=== PATIENT | male | born 1940 | race Caucasian/White ===

== ENCOUNTER 2018-11-21 10:58 | Emergency (ER) | payer OTHER ==
--- OUTSIDE RECORDS SUMMARY | 2018-11-21 11:02 | XMS REPORT | Continuity of Care Document ---
:1940 Author Organization [facility] Team Providers Name Role Phone [facility] Unavailable Unavailable Problems Problem Status Onset Classification Date Comments Source Date Reported Other fracture of 09/11/2018 Ortho T11-T12 vertebra, 018 and Spine initial encounter for closed fracture STENOSIS Active [facility] 018 Samuel Prostate cancer Resolved Problem 09/11/2018 [facility]o 011 and Spine Spinal stenosis, 09/11/2018 [facility] Ortho lumbar region without and Spine neurogenic claudication Radiculopathy, lumbar 09/11/2018 [facility] Ortho region and Spine Age-related 09/11/2018 Ortho osteoporosis without and Spine current pathological fracture Essential 09/11/2018 Ortho hypertension and Spine Pure 09/11/2018 MH Ortho hypercholesterolemia, and Spine unspecified Personal history of 09/11/2018 Ortho malignant neoplasm of and Spine prostate [facility] use of 09/11/2018 [facility] Ortho aspirin and Spine Other nursing home drug 09/11/2018 [facility] Ortho therapy and Spine Constipation Active Problem 09/11/2018 [facility] Ortho and Spine [place] (Confirmed)1 Active Problem 09/11/2018 wears Ortho hearing and Spine aids Hypercholesteremia Active Problem 09/11/2018 [facility] and Spine Hypertension Active Problem 09/11/2018 [facility] and Spine Medications Medication Details Route Status Patient Ordering Order Source Instructions Provider Date Naloxone 0.4 mg, 1 mL, Inactive Route: IVP, Drug 2017 Ortho form: INJ, and Q2MIN, Dosing Spine Weight 107.182, kg, PRN Narcotic Reversal, Start date: 02/22/18 13:02:00 CDT, Duration: 8 doses or times, Stop date: Limited # of timesNotes: Same as Narcan Ondansetron 4 mg, 2 mL, Inactive Route: IVP, Drug 2017 Ortho form: INJ, ONCE, and Dosing Weight Spine 107.182, kg, PRN Nausea & Vomiting, Start date: 02/22/18 13:02:00 CDTNotes: (Same as: Zofran) MEDICATION WASTE Product Size: 4 mg Product Wasted: ___ mg Oxycodone 5 mg, 1 tab, Inactive Route: PO, Drug 2017 Ortho form: TAB, Q4H, and Dosing Weight Spine 107.182, kg, PRN Pain Score 4-6, Start date: 02/22/18 13:02:00 CDT, Duration: 30 day, Stop date: 03/24/18 13:01:00 CSTNotes: (Same as: Roxicodone) Flumazenil 0.2 mg, 2 mL, Inactive Route: IVP, Drug 2017 Ortho form: INJ, PRN, and Dosing Weight Spine 107.182, kg, PRN Benzodiazepine Reversal, Initial dose, Start date: 02/22/18 13:02:00 CDT, Duration: 30 day, Stop date: 03/24/18 12:01:00 CSTNotes: (Same as: Romazicon) Hydromorphone 0.5 mg, 0.25 mL, Inactive Route: IVP, Drug 2017 Ortho form: INJ, and Q5Min, Dosing Spine Weight 107.182, kg, PRN Pain Score 7-10, Start date: 02/22/18 13:02:00 CDT, Duration: 4 doses or times, Stop date: Limited # of timesNotes: Same as Dilaudid ondansetron Route: IV, Drug Inactive MH (ANES) form: INJ, ONCE, 2017 Ortho Stop date: and 02/22/18 Spine 12:52:00 CDT acetaminophen Route: IV, Drug Inactive MH (ANES) 10 mg form: INJ, Start 2017 Ortho date: 02/22/18 and 12:25:00 CDT, Spine Stop date: 02/22/18 13:25:00 CDT hydromorphone Route: IV, Drug Inactive MH (ANES) form: INJ, ONCE, 2017 Ortho Stop date: and 02/22/18 Spine 12:12:00 CDT dexamethasone Route: IV, Drug Inactive MH (ANES) form: INJ, ONCE, 2017 Ortho Stop date: and 02/22/18 Spine 11:57:00 CDT midazolam (ANES) Route: IV, Drug Inactive form: SOLN, 2017 Ortho ONCE, Stop date: and 02/22/18 Spine 11:57:00 CDT ceFAZolin (ANES) Route: IV, Drug Inactive form: INJ, ONCE, 2017 Ortho Stop date: and 02/22/18 Spine 11:52:00 CDT succinylcholine Route: IV, Drug Inactive MH (ANES) form: INJ, ONCE, 2017 Ortho Stop date: and 02/22/18 Spine 11:42:00 CDT propofol (ANES) Route: IV, Drug Inactive form: INJ, ONCE, 2017 Ortho Stop date: and 02/22/18 Spine 11:37:00 CDT lidocaine (ANES) Route: IV, Drug Inactive form: INJ, ONCE, 2017 Ortho Stop date: and 02/22/18 Spine 11:37:00 CDT fentaNYL (ANES) Route: IV, Drug Inactive form: INJ, ONCE, 2017 Ortho Stop date: and 02/22/18 Spine 11:37:00 CDT Lactated Ringers Route: IV, Total Inactive Injection IV Volume: 1,000, 2017 Ortho (ANES) 1000 mL Start date: and 02/22/18 Spine 11:00:00 CDT, Stop date: 02/22/18 12:00:00 CDT Lactated Ringers 1,000 mL, Rate: No Longer IV 1,000 mL 40 ml/hr, Infuse Active 2017 Ortho over: 25 hr, and Route: IV, Spine Dosing Weight 107.182 kg, Total Volume: 1,000, Start date: 02/22/18 9:34:00 CDT, Duration: 30 day, Stop date: 03/24/18 9:33:00 QA AUTOMATION ARCHITECT, 2.39, m2 Ancef 2 gm, 100 mL, Inactive Route: IVPB, 2017 Ortho Drug form: INJ, and ONCE, Dosing Spine Weight 107.182, kg, Start date: 02/22/18 9:33:00 CDT, Stop date: 02/22/18 9:33:00 CDT, Surgical Prophylaxis Only; For patients Notes: Same as: Ancef Miralax 17 gm, PO, Active 10/10/ MH Daily, 0 2018 Ortho Refill(s) and Spine Acetaminophen 325 1 tab, PO, PRN, Active 10/10/ MH MG / Hydrocodone PRN Pain, # 30 2018 Ortho Bitartrate 10 MG tab, 0 Refill(s) and Oral Tablet Spine Diphenhydramine 25 mg=1 tab, PO, Active 10/10/ MH Hydrochloride 25 PRN, 0 Refill(s) 2018 Ortho MG Oral Tablet and [Benadryl] Spine ezetimibe 10 mg 10 mg=1 tab, PO, Active 10/10/ MH oral tablet Daily, # 90 tab, 2018 Ortho 0 Refill(s) and Spine Aspirin 81 MG 81 mg=1 tab, PO, Active 10/10/ MH Enteric Coated Daily, # 90 tab, 2018 Ortho Tablet 3 Refill(s) and Spine amLODIPine 10 mg 10 mg=1 tab, PO, Active 10/10/ MH oral tablet Daily, take DOS, 2018 Ortho # 90 tab, 0 and Refill(s) Spine atorvastatin 80 80 mg=1 tab, PO, Active 10/10/ MH mg oral tablet Bedtime, # 30 2018 Ortho tab, 0 Refill(s) and Spine Allergies, Adverse Reactions, Alerts Substance Category Reaction Severity Reaction Status Date Comments Source type Reported No Known Assertion Drug MH Medication allergy Ortho Allergies and Spine Immunizations No Data Provided for This Section Results Order Name Results Value Reference Date Interpretation Comments Source Range BLOOD BANK ABO/Rh A POS 02/16 RESULTS /2017 Ortho and Spine BLOOD BANK Antibody Scrn Negative 02/16 RESULTS (02/16/18 1:48 PM) Ortho and Spine CHEM PANEL A/G Ratio 1.0 0.7 - 1.6 02/16 Ortho and Spine CHEM PANEL Globulin 3.5 2.7 - 4.2 02/16 Ortho and Spine CHEM PANEL B/C Ratio 22 6 - 25 02/16 Ortho and Spine CHEM PANEL AGAP 11.6 10.0 - 02/16 MH 20.0 Ortho and Spine CHEM PANEL eGFR 86 02/16 Result Comment: The Ortho eGFR is and calculated Spine using the CKD-EPI formula. In most young, healthy individuals the eGFR will be >90 mL/min/1.73m2 . The eGFR declines with age. An eGFR of 60-89 may be normal in some populations, particularly the elderly, for whom the CKD-EPI formula has not been extensively validated. Use of the eGFR is not recommended in the following populations:< br/>
Saritha viduals with unstable creatinine concentration s, including patients and those with serious co-morbid conditions.<b r/>
Patie nts with extremes in muscle mass or diet.

The data above are obtained from the National Kidney Disease Education Program (NKDEP) which additionally recommends that when the eGFR is used in patients with extremes of body mass index for purposes of drug dosing, the eGFR should be multiplied by the estimated BMI. CHEM PANEL Alk Phos 87 39 - 136 02/16 Ortho and Spine CHEM PANEL Glucose Lvl 94 70 - 99 02/16 Ortho and Spine CHEM PANEL Creatinine Lvl 0.82 0.50 - 02/16 MH 1.40 Ortho and Spine CHEM PANEL BUN 18 7 - 22 02/16 Ortho and Spine CHEM PANEL Total Protein 7.0 6.4 - 8.4 02/16 Ortho and Spine CHEM PANEL CO2 29 24 - 32 02/16 Ortho and Spine CHEM PANEL Sodium Lvl 141 135 - 145 02/16 Ortho and Spine CHEM PANEL Calcium Lvl 9.7 8.5 - 10.5 02/16 Ortho and Spine CHEM PANEL Chloride Lvl 105 95 - 109 02/16 Ortho and Spine CHEM PANEL Potassium Lvl 4.6 3.5 - 5.1 02/16 Ortho and Spine CHEM PANEL Bili Total 1.2 0.2 - 1.3 02/16 Ortho and Spine CHEM PANEL Albumin Lvl 3.5 3.5 - 5.0 02/16 Ortho and Spine CHEM PANEL ASPARTATE 21 0 - 37 02/16 TRANSAMINASE Ortho and Spine CHEM PANEL ALANINE 29 0 - 65 02/16 AMINOTRANSFERAS Ortho E and Spine HEMATOLOGY INR 0.97 0.85 - 02/16 MH 1.17 Ortho and Spine HEMATOLOGY PROTIME 12.9 12.0 - 02/16 MH 14.7 Ortho and Spine HEMATOLOGY aPTT 32.7 22.9 - 02/16 MH 35.8 Ortho and Spine HEMATOLOGY Lymphocytes # 1.7 1.0 - 5.5 02/16 Ortho and Spine HEMATOLOGY Neutrophils # 4.1 1.5 - 8.1 02/16 Ortho and Spine HEMATOLOGY Monocytes # 0.7 0.0 - 0.8 02/16 Ortho and Spine HEMATOLOGY Basophils # 0.1 0.0 - 0.2 02/16 Ortho and Spine HEMATOLOGY Eosinophils # 0.2 0.0 - 0.5 02/16 Ortho and Spine HEMATOLOGY Lymphocytes 25.5 20.0 - 10 MH 40.0 /2017 Ortho and Spine HEMATOLOGY Segs 60.6 45.0 - 02/16 MH 75.0 /2018 Ortho and Spine HEMATOLOGY Eosinophils 2.4 0.0 - 4.0 02/16 Ortho and Spine HEMATOLOGY Monocytes 10.5 2.0 - 12.0 02/16 Ortho and Spine HEMATOLOGY Basophils 1.0 0.0 - 1.0 02/16 Ortho and Spine HEMATOLOGY Hgb 13.2 14.0 - 02/16 MH 18.0 Ortho and Spine HEMATOLOGY Hct 40.7 42.0 - 02/16 MH 54.0 Ortho and Spine HEMATOLOGY MCV 93.7 80.0 - 02/16 MH 94.0 /2017 Ortho and Spine HEMATOLOGY MCH 30.5 27.0 - 02/16 MH 31.0 Ortho and Spine HEMATOLOGY RBC 4.34 4.70 - 02/16 MH 6. Ortho and Spine HEMATOLOGY Platelet 253 133 - 450 02/16 Ortho and Spine HEMATOLOGY MPV 9.8 7.4 - 10.4 02/16 Ortho and Spine HEMATOLOGY RDW 13.6 11.5 - 02/16 MH 14. Ortho and Spine HEMATOLOGY MCHC 32.6 32.0 - 02/16 MH 36.0 2018 Ortho and Spine HEMATOLOGY WBC 6.8 3.7 - 10.4 02/16 Ortho and Spine Pathology Reports No Data Provided for This Section Diagnostic Reports No Data Provided for This Section Consultation Notes No Data Provided for This Section Discharge Summaries No Data Provided for This Section History and Physicals No Data Provided for This Section Vital Signs Vital Sign Value Date Comments Source Respitory Rate 14 02/22/2018 Ortho and Spine Heart Rate 76 02/22/2018 Ortho and Spine Systolic (mm Hg) 130 02/22/2018 Ortho and Spine Diastolic (mm Hg) 77 02/22/2018 Ortho and Spine Systolic (mm Hg) 126 02/22/2018 Ortho and Spine Diastolic (mm Hg) 70 02/22/2018 Ortho and Spine Respitory Rate 12 02/22/2018 Ortho and Spine Heart Rate 79 02/22/2018 Ortho and Spine Systolic (mm Hg) 122 02/22/2018 Ortho and Spine Diastolic (mm Hg) 64 02/22/2018 Ortho and Spine Respitory Rate 12 02/22/2018 Ortho and Spine Heart Rate 89 02/22/2018 Ortho and Spine Temperature Oral (F) 97.5 F 02/22/2018 Ortho and Spine BMI Calculated 29.53 02/22/2018 Ortho and Spine Weight 107.182 02/22/2018 Ortho and Spine Temperature Oral (F) 97.5 F 02/16/2018 Ortho and Spine Height 190.5 cm 02/14/2018 Ortho and Spine Encounters Location Location Encounter Encounter Reason Attending ADM DC Status Source Details Type Number For Provider Date Date Visit [id number] Tim 02/22 02/23 [facility] /2017 [facility] Procedures Procedure Code Date Perfomer Comments Source Total hip [id number] 12/06/2017 Ortho and replacement Spine Total knee [id number] 05/08/2015 Ortho and replacement Spine Hernia repair [id number] 05/08/2013 Ortho and Spine Prostatectomy [id number] 05/08/2010 Ortho and Spine Rotator cuff repair [id number] 05/08/2010 Ortho and Spine Varicose vein [id number] Ortho and operation Spine Assessment and Plan No Data Provided for This Section Plan of Care No Data Provided for This Section Social History Social History Date Source Social History TypeResponse 02/14/2018 Ortho and Spine Substance Abuse Use: None. Exercise 1 Alcohol Current, Frequency: Daily. Previous treatment: None. Smoking Status Never smoker; Exposure to Tobacco Smoke None; Cigarette Smoking Last 365 Days No; Reg Smoking Cessation Counseling No entered on: 02/22/18 1is very active. Denies SOB with exertion Family History No Data Provided for This Section Advance Directives No Data Provided for This Section Functional Status No Data Provided for This Section
--- OUTSIDE RECORDS SUMMARY | 2018-11-21 11:02 | XMS REPORT | Summary of Care ---
:1940 Author Organization [facility] Address [address] [place] [phone] Encounter HQ Marcus(FIN) [id number] Date(s): 02/22/18 - 02/22/18 [facility] [address] [place] [address]- [phone] Encounter Diagnosis Other fracture of T11-T12 vertebra, initial encounter for closed fracture (Final ) - 03/01/18 Spinal stenosis, lumbar region without neurogenic claudication (Final) - Radiculopathy, lumbar region (Final) - Age-related osteoporosis without current pathological fracture (Final) - Essential (primary) hypertension (Final) - Pure hypercholesterolemia, unspecified (Final) - Personal history of malignant neoplasm of prostate (Final) - intermediate manager (current) use of aspirin (Final) - Other mcc (current) drug therapy (Final) - Discharge Disposition: Home or Self Care Attending Physician: Tim Watts MD Referring Physician: Tim Watts MD Vital Signs Most recent to oldest 1 2 3 [Reference Range]: Height 190.5 cm (02/14/18 12:45 PM) Temperature Oral [96.4-99.1 97.5 DegF 97.5 DegF DegF] (02/22/18 9:11 AM) (02/16/18 1:37 PM) Blood Pressure 130/77 mmHg 126/70 mmHg 122/64 mmHg [90-140/60-90 mmHg] (02/22/18 2:01 PM) (02/22/18 1:47 PM) (02/22/18 1:25 PM) Respiratory Rate [14-20 14 BRMIN 12 BRMIN 12 BRMIN BRMIN] (02/22/18 2:01 PM) *LOW* *LOW* (02/22/18 1:47 PM) (02/22/18 1:25 PM) Peripheral Pulse Rate 76 bpm 79 bpm 89 bpm [60-100 bpm] (02/22/18 2:01 PM) (02/22/18 1:47 PM) (02/22/18 9:11 AM) Weight 107.182 kg (02/22/18 9:10 AM) Body Mass Index 29.53 m2 (02/22/18 9:10 AM) Problem List Condition Effective Dates Status Health Status Informant Constipation(Confirmed) Active [facility] (hard of hearing)(Confirmed)1 Active Hypercholesteremia(Confirmed) Active Hypertension(Confirmed) Active Prostate cancer(Confirmed) 2011 Resolved 1wears hearing aids Allergies, Adverse Reactions, Alerts No Known Medication Allergies Medications acetaminophen (ANES) 10 mg Route: IV, Drug form: INJ, Start date: 02/22/18 12:25:00 CDT, Stop date: 13:25:00 CDT Start Date: 02/22/18 Stop Date: 02/22/18 Status: Completedacetaminophen-hydrocodone 325 mg-10 mg oral tablet 1 tab, PO, PRN, PRN Pain, # 30 tab, 0 Refill(s) Start Date: 02/14/18 Status: OrderedamLODIPine 10 mg oral tablet 10 mg=1 tab, PO, Daily, take DOS, # 90 tab, 0 Refill(s) Start Date: 02/14/18 Status: OrderedAncef 2 gm, 100 mL, Route: IVPB, Drug form: INJ, ONCE, Dosing Weight 107.182, kg, Start date: 02/22/18 9:33:00 CDT, Stop date: 02/22/18 9:33:00 CDT, Surgical Prophylaxis Only; For patients < 120 kg, ABX Indication: Surgical Prophylaxis Notes: Same as: Ancef Start Date: 02/22/18 Stop Date: 02/22/18 Status: CompletedANES flumazenil 0.2 mg, 2 mL, Route: IVP, Drug form: INJ, PRN, Dosing Weight 107.182, kg, PRN Benzodiazepine Reversal, Initial dose, Start date: 02/22/18 13:02:00 CDT, Duration: 30 day, Stop date: 03/24/18 12:01:00 [employer] AND [employer]ANDAR[employer] ENGINEER Notes: (Same as: Romazicon) Start Date: 02/22/18 Stop Date: 02/22/18 Status: DiscontinuedANES HYDROmorphone 0.5 mg, 0.25 mL, Route: IVP, Drug form: INJ, Q5Min, Dosing Weight 107.182, kg, PRN Pain Score 7-10, Start date: 02/22/18 13:02:00 CDT, Duration: 4 doses or times, Stop date: Limited # of times Notes: Same as Dilaudid Start Date: 02/22/18 Stop Date: 02/22/18 Status: DiscontinuedANES naloxone 0.4 mg, 1 mL, Route: IVP, Drug form: INJ, Q2MIN, Dosing Weight 107.182, kg, PRN Narcotic Reversal, Start date: 02/22/18 13:02:00 CDT, Duration: 8 doses or times , Stop date: Limited # of times Notes: Same as Narcan Start Date: 02/22/18 Stop Date: 02/22/18 Status: DiscontinuedANES ondansetron 4 mg, 2 mL, Route: IVP, Drug form: INJ, ONCE, Dosing Weight 107.182, kg, PRN Nausea & Vomiting, Start date: 02/22/18 13:02:00 CDT Notes: (Same as: Naga) MEDICATION WASTE Product Size: 4 mgProduct Wasted: ___ mg Start Date: 02/22/18 Stop Date: 02/22/18 Status: DiscontinuedANES oxyCODONE 5 mg, 1 tab, Route: PO, Drug form: TAB, Q4H, Dosing Weight 107.182, kg, PRN Pain Score 4-6, Start date: 02/22/18 13:02:00 CDT, Duration: 30 day, Stop date: 03/24/18 13:01:00 [employer]ODUCT SAFETY AND 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[employer] ENGINEER Notes: (Same as: Roxicodone) Start Date: 02/22/18 Stop Date: 02/22/18 Status: Discontinuedaspirin 81 mg tablet, enteric coated 81 mg=1 tab, PO, Daily, # 90 tab, 3 Refill(s) Start Date: 02/14/18 Status: Orderedatorvastatin 80 mg oral tablet 80 mg=1 tab, PO, Bedtime, # 30 tab, 0 Refill(s) Start Date: 02/14/18 Status: OrderedBenadryl 25 mg oral tablet 25 mg=1 tab, PO, PRN, 0 Refill(s) Start Date: 02/14/18 Status: OrderedceFAZolin (ANES) Route: IV, Drug form: INJ, ONCE, Stop date: 02/22/18 11:52:00 CDT Start Date: 02/22/18 Stop Date: 02/22/18 Status: Completeddexamethasone (ANES) Route: IV, Drug form: INJ, ONCE, Stop date: 02/22/18 11:57:00 CDT Start Date: 02/22/18 Stop Date: 02/22/18 Status: Completedezetimibe 10 mg oral tablet 10 mg=1 tab, PO, Daily, # 90 tab, 0 Refill(s) Start Date: 02/14/18 Status: OrderedfentaNYL (ANES) Route: IV, Drug form: INJ, ONCE, Stop date: 02/22/18 11:37:00 CDT Start Date: 02/22/18 Stop Date: 02/22/18 Status: Completedhydromorphone (ANES) Route: IV, Drug form: INJ, ONCE, Stop date: 02/22/18 12:12:00 CDT Start Date: 02/22/18 Stop Date: 02/22/18 Status: CompletedLactated Ringers Injection IV (ANES) 1000 mL Route: IV, Total Volume: 1,000, Start date: 02/22/18 11:00:00 CDT, Stop date: 12:00:00 CDT Start Date: 02/22/18 Stop Date: 02/22/18 Status: CompletedLactated Ringers IV 1,000 mL 1,000 mL, Rate: 40 ml/hr, Infuse over: 25 hr, Route: IV, Dosing Weight 107.182 kg, Total Volume: 1,000, Start date: 02/22/18 9:34:00 CDT, Duration: 30 day, Stop date: 03/24/18 9:33:00 PRODUCT SAFETY AND STANDARDS ENGINEER, 2.39, m2 Start Date: 02/22/18 Stop Date: 02/23/18 Status: Discontinuedlidocaine (ANES) Route: IV, Drug form: INJ, ONCE, Stop date: 02/22/18 11:37:00 CDT Start Date: 02/22/18 Stop Date: 02/22/18 Status: Completedmidazolam (ANES) Route: IV, Drug form: SOLN, ONCE, Stop date: 02/22/18 11:57:00 CDT Start Date: 02/22/18 Stop Date: 02/22/18 Status: CompletedMiraLax 17 gm, PO, Daily, 0 Refill(s) Start Date: 02/14/18 Status: Orderedondansetron (ANES) Route: IV, Drug form: INJ, ONCE, Stop date: 02/22/18 12:52:00 CDT Start Date: 02/22/18 Stop Date: 02/22/18 Status: Completedpropofol (ANES) Route: IV, Drug form: INJ, ONCE, Stop date: 02/22/18 11:37:00 CDT Start Date: 02/22/18 Stop Date: 02/22/18 Status: Completedsuccinylcholine (ANES) Route: IV, Drug form: INJ, ONCE, Stop date: 02/22/18 11:42:00 CDT Start Date: 02/22/18 Stop Date: 02/22/18 Status: Completed Results Most recent to oldest [Reference Range]: 1 Neutrophils # [1.5-8.1 K/CMM] 4.1 K/CMM (02/16/18 1:48 PM) Lymphocytes # [1.0-5.5 K/CMM] 1.7 K/CMM (02/16/18 1:48 PM) Monocytes # [0.0-0.8 K/CMM] 0.7 K/CMM (02/16/18 1:48 PM) Eosinophils # [0.0-0.5 K/CMM] 0.2 K/CMM (02/16/18 1:48 PM) Basophils # [0.0-0.2 K/CMM] 0.1 K/CMM (02/16/18 1:48 PM) eGFR 86 mL/min/1.73m2 1 *NA* (02/16/18 1:48 PM) ABO/Rh A POS *Unknown* (02/16/18 1:48 PM) A/G Ratio [0.7-1.6] 1.0 (02/16/18 1:48 PM) Antibody Scrn Negative (02/16/18 1:48 PM) Albumin Lvl [3.5-5.0 g/dL] 3.5 g/dL (02/16/18 1:48 PM) Alk Phos [39-136 unit/L] 87 unit/L (02/16/18 1:48 PM) ALT [0-65 unit/L] 29 unit/L (02/16/18 1:48 PM) AGAP [10.0-20.0 mEq/L] 11.6 mEq/L (02/16/18 1:48 PM) AST [0-37 unit/L] 21 unit/L (02/16/18 1:48 PM) B/C Ratio [6-25] 22 (02/16/18 1:48 PM) Basophils [0.0-1.0 %] 1.0 % (02/16/18 1:48 PM) BUN [7-22 mg/dL] 18 mg/dL (02/16/18 1:48 PM) Calcium Lvl [8.5-10.5 mg/dL] 9.7 mg/dL (02/16/18 1:48 PM) Chloride Lvl [95-109 mEq/L] 105 mEq/L (02/16/18 1:48 PM) CO2 [24-32 mEq/L] 29 mEq/L (02/16/18 1:48 PM) Creatinine Lvl [0.50-1.40 mg/dL] 0.82 mg/dL (02/16/18 1:48 PM) Eosinophils [0.0-4.0 %] 2.4 % (02/16/18 1:48 PM) Globulin [2.7-4.2 g/dL] 3.5 g/dL (02/16/18 1:48 PM) Glucose Lvl [70-99 mg/dL] 94 mg/dL (02/16/18 1:48 PM) Hct [42.0-54.0 %] 40.7 % *LOW* (02/16/18 1:48 PM) Hgb [14.0-18.0 g/dL] 13.2 g/dL *LOW* (02/16/18 1:48 PM) INR [0.85-1.17] 0.97 (02/16/18 1:48 PM) Potassium Lvl [3.5-5.1 mEq/L] 4.6 mEq/L (02/16/18 1:48 PM) Lymphocytes [20.0-40.0 %] 25.5 % (02/16/18 1:48 PM) MCH [27.0-31.0 pg] 30.5 pg (02/16/18 1:48 PM) MCHC [32.0-36.0 g/dL] 32.6 g/dL (02/16/18 1:48 PM) MCV [80.0-94.0 fL] 93.7 fL (02/16/18 1:48 PM) Monocytes [2.0-12.0 %] 10.5 % (02/16/18 1:48 PM) MPV [7.4-10.4 fL] 9.8 fL (02/16/18 1:48 PM) Sodium Lvl [135-145 mEq/L] 141 mEq/L (02/16/18 1:48 PM) Platelet [133-450 K/CMM] 253 K/CMM (02/16/18 1:48 PM) Segs [45.0-75.0 %] 60.6 % (02/16/18 1:48 PM) Total Protein [6.4-8.4 g/dL] 7.0 g/dL (02/16/18 1:48 PM) PT [12.0-14.7 seconds] 12.9 seconds (02/16/18 1:48 PM) PTT [22.9-35.8 seconds] 32.7 seconds (02/16/18 1:48 PM) RBC [4.70-6.10 M/CMM] 4.34 M/CMM *LOW* (02/16/18 1:48 PM) RDW [11.5-14.5 %] 13.6 % (02/16/18 1:48 PM) Bili Total [0.2-1.3 mg/dL] 1.2 mg/dL (02/16/18 1:48 PM) WBC [3.7-10.4 K/CMM] 6.8 K/CMM (02/16/18 1:48 PM) 1Result Comment: The eGFR is calculated using the CKD-EPI formula. In most young , healthy individualsthe eGFR will be >90 mL/min/1.73m2. The eGFR declines with age. An eGFR of 60-89 may be normal insome populations, particularly the elderly, for whom the CKD-EPI formula has not been extensively validated. Use of the eGFR is not recommended in the following populations: Individuals with unstable creatinine concentrations, including patients and those with serious co-morbid conditions. Patients with extremes in muscle mass or diet. The data above are obtained from the National Kidney Disease Education Program ( NKDEP) which additionally recommends that when the eGFR is used in patients with extremes of body mass index for purposesof drug dosing, the eGFR should be multiplied by the estimated BMI. Immunizations No data available for this section Procedures Procedure Date Related Diagnosis Body Site Status Total hip replacement 12/2017 Completed Total knee replacement 2015 Completed Hernia repair 2013 Completed Prostatectomy 2010 Completed Rotator cuff repair 2010 Completed Varicose vein operation Completed Social History Social History Type Response Substance Abuse Use: None. Exercise 1 Alcohol Current, Frequency: Daily. Previous treatment: None. Smoking Status Never smoker; Exposure to Tobacco Smoke None; Cigarette Smoking Last 365 Days No; Reg Smoking Cessation Counseling No entered on: 02/22/18 1is very active. Denies SOB with exertion Assessment and Plan No data available for this section
--- NOTE | 2018-11-21 12:18 | RAD REPORT ---
EXAM DESCRIPTION: Marv Single View11/21/2018 12:12 pm CLINICAL HISTORY: Chest pain COMPARISON: none FINDINGS: The lungs appear clear of acute infiltrate. The heart is normal size IMPRESSION: No acute abnormalities displayed
--- NOTE | 2018-11-21 12:18 | RAD REPORT ---
EXAM DESCRIPTION: RAD - Ribs Left - 11/21/2018 12:05 pm CLINICAL HISTORY: Left rib pain FINDINGS: No fracture is seen
--- NOTE | 2018-11-21 12:30 | RAD REPORT ---
EXAM DESCRIPTION: RAD - Hip Left 2 View - 11/21/2018 12:22 pm CLINICAL HISTORY: LT HIP PAIN Fall, left hip pain COMPARISON: Hip Left 2 View dated 01/02/2018 FINDINGS: No fracture, dislocation or AVN.
--- NOTE | 2018-11-21 12:53 | EDPHYS ---
Physician Documentation [facility] Name: Mauricio Vargas Age: 78 yrs Sex: Male : 1940 Arrival Date: 11/21/2018 Time: 10:57 Bed 12 Private MD: Destin Hernandez C ED Physician Gamaliel Schultz HPI: 11/21 12:38 This 78 yrs old Male presents to ER via Ambulatory with complaints of Rib jr8 Pain. 12:38 Onset: The symptoms/episode began/occurred acutely, 2 day(s) ago. jr8 12:39 Mechanism of injury: Fall: the patient fell from a standing position and struck a jr8 concrete surface. Associated injuries: The patient sustained left lower ribs, painful injury, left hip, painful injury. The patient has not experienced similar symptoms in the past. The patient has not recently seen a physician. reports trip/fall from standing 2 days ago, left lower rib pain and left hip pain.. 12:39 took tylenol #3 at home with some relief. jr8 Historical: - Allergies: 11:04 PENICILLINS; hj 11:04 Sulfa (Sulfonamide Antibiotics); hj - PMHx: 11:04 Hypertension; Hyperlipidemia; hj - PSHx: 11:04 Knee surgery; hip; laminectomy; hj - Immunization history:: Adult Immunizations up to date. - Social history:: Smoking status: Patient/guardian denies using tobacco, Patient/guardian denies using alcohol. - Ebola Screening: : Patient negative for fever greater than or equal to 101.5 degrees Fahrenheit, and additional compatible Ebola Virus Disease symptoms Patient denies exposure to infectious person Patient denies travel to an Ebola-affected area in the 21 days before illness onset. ROS: 12:39 Constitutional: Negative for fever, chills, and weight loss, Eyes: Negative for injury, jr8 pain, redness, and discharge, ENT: Negative for injury, pain, and discharge, Neck: Negative for injury, pain, and swelling, Cardiovascular: Negative for chest pain, palpitations, and edema, Respiratory: Negative for shortness of breath, cough, wheezing, and pleuritic chest pain, Abdomen/GI: Negative for abdominal pain, nausea, vomiting, diarrhea, and constipation, Back: Negative for injury and pain, Neuro: Negative for headache, weakness, numbness, tingling, and seizure. 12:39 MS/extremity: Positive for pain, Negative for decreased range of motion, paresthesias, puncture, tingling. 12:39 Skin: Positive for of the left forearm, skin tear, Negative for laceration(s), puncture. Exam: 12:39 Constitutional: This is a well developed, well nourished patient who is awake, alert, jr8 and in no acute distress. Head/Face: Normocephalic, atraumatic. Eyes: Pupils equal round and reactive to light, extra-ocular motions intact. Lids and lashes normal. Conjunctiva and sclera are non-icteric and not injected. Cornea within normal limits. Periorbital areas with no swelling, redness, or edema. Neck: Trachea midline, no thyromegaly or masses palpated, and no cervical lymphadenopathy. Supple, full range of motion without nuchal rigidity, or vertebral point tenderness. No Meningismus. Chest/axilla: Normal chest wall appearance and motion. No lesions are appreciated. Minor tenderness over left lower ribs with deep inspiration. Cardiovascular: Regular rate and rhythm with a normal S1 and S2. No gallops, murmurs, or rubs. Normal PMI, no JVD. No pulse deficits. Respiratory: Lungs have equal breath sounds bilaterally, clear to auscultation and percussion. No rales, rhonchi or wheezes noted. No increased work of breathing, no retractions or nasal flaring. Abdomen/GI: Soft, non-tender, with normal bowel sounds. No distension or tympany. No guarding or rebound. No evidence of tenderness throughout. Back: No spinal tenderness. No costovertebral tenderness. Full range of motion. MS/ Extremity: Pulses equal, no cyanosis. Neurovascular intact. Full, normal range of motion. Neuro: Awake and alert, GCS 15, oriented to person, place, time, and situation. Cranial nerves II-XII grossly intact. Motor strength 5/5 in all extremities. Sensory grossly intact. Cerebellar exam normal. Normal gait. 12:39 Skin: Appearance: normal except for affected area, injury, skin tear to left forearm, superficial, cleaned and dressed PLASTIC PROCESS TECHNICIAN. Vital Signs: 11:04 BP 136 / 70; Pulse 84; Resp 18; Temp 98.2(TE); Pulse Ox 97% on R/A; Weight 106.59 kg; hj Height 6 ft. 0 in. (182.88 cm); Pain 0/10; 11:04 Body Mass Index 31.87 (106.59 kg, 182.88 cm) MDM: 11:36 Patient medically screened. jr8 12:39 Differential diagnosis: rib fracture, pneumothorax, hip fracture, hip dislocation. Data jr8 reviewed: vital signs, nurses notes, radiologic studies, plain films. Counseling: I had a detailed discussion with the patient and/or guardian regarding: radiology results, the need for outpatient follow up, a family practitioner. 12:39 Data reviewed: and as a result, I will discharge patient. ED course: Discussed negative jr8 x-rays of chest, ribs, and hip with patient. Advised to take ibuprofen at home for pain control and to cough/deep breathe to prevent atelectasis or PNA. Educated regarding wound care for skin tear. Patient to return to ED for worsening pain or any other concerns, verbalized understanding. 12:39 Data interpreted: Pulse oximetry: on room air is 97 %. Interpretation: normal. jr8 11/21 11:38 Order name: XRAY Chest (1 view); Complete Time: 12:23 8 11/21 11:38 Order name: XRAY Ribs LEFT; Complete Time: 12:23 [facility] 11/21 12:17 Order name: Hip Left 2 View; Complete Time: 12:30 EDMS Administered Medications: No medications were administered Disposition: 15:58 Co-signature as Attending Physician, Gamaliel Schultz MD. rn Disposition: 11/21/18 12:52 Discharged to Home. Impression: Pain in left hip, left sided rib cage pain/contusion. - Condition is Stable. - Discharge Instructions: Rib Contusion, Hip Pain. - Medication Reconciliation Form, Thank You Letter, Antibiotic Education, Prescription Opioid Use form. - Follow up: Destin Hernandez MD; When: 2 - 3 days; Reason: Recheck today's complaints, Continuance of care, Re-evaluation by your physician. - Problem is new. - Symptoms have improved. Signatures: Dispatcher [employer] EDMS Cecy Viera RN RN Gamaliel Schultz MD MD rn Roszak, Josh, PA PA jr8 Faheem Beasley RN RN Corrections: (The following items were deleted from the chart) 12:41 12:38 Associated signs and symptoms: Pertinent negatives: chest pain, congestion, lianne jr8 12:41 12:38 Modifying factors: the patient symptoms are aggravated by lianne jr8 13:25 12:52 11/21/2018 12:52 Discharged to Home. Impression: Pain in left hip; left sided rib iw cage pain/contusion. Condition is Stable. Forms are Medication Reconciliation Form, Thank You Letter, Antibiotic Education, Prescription Opioid Use. Follow up: A Hernandez; When: 2 - 3 days; Reason: Recheck today's complaints, Continuance of care, Re-evaluation by your physician. Problem is new. Symptoms have improved. jr8 13:37 12:39 Data reviewed: and as a result, I will discharge patient, lianne jr8
--- NOTE | 2018-11-21 12:53 | ER ---
Nurse's Notes [facility] Name: Mauricio Vargas Age: 78 yrs Sex: Male : 1940 Arrival Date: 11/21/2018 Time: 10:57 Bed 12 Private MD: Destin Hernandez C Diagnosis: Pain in left hip;left sided rib cage pain/contusion Presentation: 11/21 11:01 Presenting complaint: Patient states: i fell in the garage last Monday and hurt my L hj chest area, i think i broke a rib coz its hard to breathe, my L hip hurts too; denies pain;. Transition of care: patient was not received from another setting of care. Onset of symptoms was November 21, 2018. Risk Assessment: Do you want to hurt yourself or someone else? Patient reports no desire to harm self or others. Initial Sepsis Screen: Does the patient meet any 2 criteria? No. Patient's initial sepsis screen is negative. Does the patient have a suspected source of infection? No. Patient's initial sepsis screen is negative. Care prior to arrival: None. 11:01 Method Of Arrival: Ambulatory 11:01 Acuity: VELVET 4 hj Triage Assessment: 11:41 General: Appears in no apparent distress. uncomfortable, Behavior is calm, cooperative, hj appropriate for age. Pain: Denies pain. Historical: - Allergies: 11:04 PENICILLINS; hj 11:04 Sulfa (Sulfonamide Antibiotics); hj - PMHx: 11:04 Hypertension; Hyperlipidemia; hj - PSHx: 11:04 Knee surgery; hip; laminectomy; hj - Immunization history:: Adult Immunizations up to date. - Social history:: Smoking status: Patient/guardian denies using tobacco, Patient/guardian denies using alcohol. - Ebola Screening: : Patient negative for fever greater than or equal to 101.5 degrees Fahrenheit, and additional compatible Ebola Virus Disease symptoms Patient denies exposure to infectious person Patient denies travel to an Ebola-affected area in the 21 days before illness onset. Screenin:41 Abuse screen: Denies threats or abuse. Denies injuries from another. Nutritional hj screening: No deficits noted. Tuberculosis screening: No symptoms or risk factors identified. Fall Risk None identified. Assessment: 12:00 General: Appears in no apparent distress. Behavior is calm, cooperative. Pain: iw Complains of pain in ribs, left hip. Neuro: Level of Consciousness is awake, alert, obeys commands, Oriented to person, place, time, situation, Moves all extremities. Cardiovascular: Patient's skin is warm and dry. Respiratory: Respiratory effort is even, unlabored, Respiratory pattern is regular. GI: No signs and/or symptoms were reported involving the gastrointestinal system. Derm: Skin is intact, is healthy with good turgor. Musculoskeletal: Range of motion: intact in all extremities. Vital Signs: 11:04 BP 136 / 70; Pulse 84; Resp 18; Temp 98.2(TE); Pulse Ox 97% on R/A; Weight 106.59 kg; hj Height 6 ft. 0 in. (182.88 cm); Pain 0/10; 11:04 Body Mass Index 31.87 (106.59 kg, 182.88 cm) ED Course: 10:57 Patient arrived in ED. as 11:00 Destin Hernandez MD is Private Physician. as 11:03 Triage completed. hj 11:04 Arm band placed on left wrist. hj 11:26 Nela Penny, RN is Primary Nurse. aj 11:34 Faheem Beasley, SAMUEL is Primary Nurse. hj 11:36 Mundo Eldridge PA is PHCP. jr8 11:36 Gamaliel Schultz MD is Attending Physician. jr8 11:42 Patient has correct armband on for positive identification. Bed in low position. Call hj light in reach. Side rails up X 1. Adult w/ patient. 11:52 Patient moved to radiology via wheelchair. jb2 12:08 XRAY Chest (1 view) In Process Unspecified. EDMS 12:08 XRAY Ribs LEFT In Process Unspecified. EDMS 12:23 Hip Left 2 View In Process Unspecified. EDMS 12:49 Destin Hernandez MD is Referral Physician. jr8 13:24 No provider procedures requiring assistance completed. Patient did not have IV access iw during this emergency room visit. Administered Medications: No medications were administered Outcome: 12:52 Discharge ordered by . jr8 13:24 Discharged to home ambulatory. iw 13:24 Condition: good 13:24 Discharge instructions given to patient, Instructed on discharge instructions, follow up and referral plans. Demonstrated understanding of instructions, follow-up care. 13:25 Patient left the ED. iw Signatures: Dispatcher [employer] Nela Amor, RN RN Coleman Lipscomb Amelia as Williams, Irene, RN RN Mundo Hill PA PA jr8 Faheem Beasley RN RN hj Corrections: (The following items were deleted from the chart) 11:06 11:04 Pulse 84bpm; Resp 18bpm; Pulse Ox 97% RA; Temp 98.2F Temporal; 106.59 kg; Height hj 6 ft. 0 in.; BMI: 31.8; Pain 0/10; hj
== END 2018-11-21 13:25 | disposition home or self-care (01) ==
LOC: ER 10:58
DX: R07.81 Pleurodynia (principal); M25.552 Pain in left hip; I10 Essential (primary) hypertension; E78.5 Hyperlipidemia, unspecified; Z88.0 Allergy status to penicillin; Z88.2 Allergy status to sulfonamides
CPT/HCPCS: 71045

== ENCOUNTER 2022-11-07 07:54 | Day surgery (SDC) | payer OTHER ==
[2022-11-04 16:00] LABS: Absolute Lymphocytes (CBC) 2.5 K/uL (0.7-4.9); Hematocrit 39.3 % (39.6-49.0); Lymphocytes % 36.4 % (15.3-44.8); MCV 97.6 fL (80-100); RBC Red Blood Cell Count 4.03 M/uL (4.33-5.43)
[2022-11-04 16:14] LABS: Potassium 4.7 mEq/L (3.5-5.1)
--- NOTE | 2022-11-04 16:17 | RAD REPORT ---
EXAM DESCRIPTION: Marv Ayala (2 Views)11/04/2022 3:52 pm CLINICAL HISTORY: Preop hernia repair COMPARISON: 2019 FINDINGS: The lungs are mildly hyperaerated The lungs appear clear of acute infiltrate. The heart is normal size IMPRESSION: No acute abnormalities displayed
[2022-11-07] MEDS ORDERED: CEFAZOLIN SODIUM 1 GM/VIAL ONE (08:32)
[2022-11-07] MEDS ORDERED: Ringers Lactate 1,000 ML IV ONE (08:32)
[2022-11-07] MEDS ORDERED: propofoL 200 MG/20 ML VIAL IV ONE (09:17)
[2022-11-07] MEDS ORDERED: Phenylephrine HCl 10 MG/ML 1 ML VIAL ONE (09:18)
[2022-11-07] MEDS ORDERED: FENTANYL CITR 100 MCG/2 ML ONE (09:18)
[2022-11-07] MEDS ORDERED: NS 0.9% VIAL 10 ML ONE ×2 (09:18→10:17)
[2022-11-07] MEDS ORDERED: LIDOCAINE 2% MPF 5 ML VIAL ONE (09:18)
[2022-11-07] MEDS ORDERED: ROCURONIUM 50 MG/5 ML VIAL IV ONE (09:18)
[2022-11-07] MEDS ORDERED: dexAMETHasone 4 MG/ML VIAL ONE (09:19)
[2022-11-07] MEDS ORDERED: ONDANSETRON 4 MG/2 ML VIAL ONE (09:19)
[2022-11-07] MEDS ORDERED: GLYCOPYRROLATE 0.2 MG/ML SYR ONE ×3 (09:48→10:41)
[2022-11-07] MEDS ORDERED: NEOSTIGMINE 1 MG/ML -10 ML VIAL ONE (10:09)
[2022-11-07] MEDS ORDERED: EPHEDRINE SULF 50 MG/ML VIAL ONE (10:16)
--- NOTE | 2022-11-07 10:46 | P.BOP ---
Preoperative diagnosis: Tender recurrent right inguinal hernia, incarcerted left inguinal hernia Postoperative diagnosis: same Primary procedure: 1. Open repair of tender recurrent right inguinal hernia with mesh Secondary procedure: 2. Open repair of tender incarcerated left inguinal hernia with mesh Estimated blood loss: <10cc Specimen: lipome of cord Findings: as above Anesthesia: Local Complications: None Implants: right plug, left side plug and sheet Transferred to: Recovery Room Condition: Good
[2022-11-07 11:43] VITALS: BP 119/65; TEMP 97.6; O2SAT 97
--- NOTE | 2022-11-07 19:34 | EKG ---
Test Date: 2022-11-04 Test Time: 15:36:49 Technical Applications Scientist: AMIRA MEASUREMENT RESULTS: Intervals: Rate: 56 VA: 148 QRSD: 82 QT: 414 QTc: 399 [place]: P: 71 VA: 148 QRS: 8 T: 46 INTERPRETIVE STATEMENTS: Sinus bradycardia Otherwise normal ECG No previous ECG available for comparison Electronically Signed On 11-07-22 19:30:41 CDT by Shen Kaplan
== END 2022-11-07 12:15 | disposition home or self-care (01) ==
LOC: OR 07:54
PROVIDERS: ATTEND Surgery
PROC: 0YU60JZ Supplement Left Inguinal Region with Synthetic Substitute, Open Approach (ICD-10-PCS; 2022-11-07)
PROC: 0YU50JZ Supplement Right Inguinal Region with Synthetic Substitute, Open Approach (ICD-10-PCS; principal; 2022-11-07 09:30)
DX: K40.30 Unilateral inguinal hernia, with obstruction, without gangrene, not specified as recurrent (principal); K40.91 Unilateral inguinal hernia, without obstruction or gangrene, recurrent
CPT/HCPCS: 93005; 85025; 80048; 36415; 88302; 71046; 49520; 49507; A4216 ×2; J2704; J1100; J2710; J2370; J2001; J3010; J2405; J7120; J0690

== ENCOUNTER 2024-07-23 11:53 | Emergency (ER) | payer OTHER ==
[2024-07-23] MEDS ORDERED: MORPHINE 4 MG/ML SYR ONE (13:12)
[2024-07-23] MEDS ORDERED: MORPHINE 2 MG/ML SYR ONE ×2 (13:12→16:16)
--- NOTE | 2024-07-23 13:52 | RAD REPORT ---
EXAMINATION: CT CHEST WITHOUT CONTRAST CLINICAL INDICATION: BLUNT CHEST TRAUMA TECHNIQUE: Routine CT scan of the chest without intravenous contrast. One or more of the following do se reduction techniques were used: Automated exposure control, adjustment of the mA and/or kV according to patient size, and/or iterative reconstruction. Unless otherwise specified, incidental fi ndings do not require dedicated imaging follow-up. COMPARISON: No prior exam. FINDINGS: LOWER NECK: Small nodules in the thyroid gland. LUNGS: Irregular mass is present in the medial left upper lobe measuring 22 x 21 mm. Elsewhere there is a small indeterminate nodule in the posterior right measuring 5 mm. Mild linear atelectasis in both lung bases. PLEURA: No pleural effusion. No pneumothorax. . MEDIASTINUM AND LYMPH NODES: No mediastinal mass or fluid collection. Normal size mediastinal, hilar, and axillary lymph nodes. OSSEOUS STRUCTURES AND CHEST WALL: Lower thoracic vertebroplasty. Slight irregularity of the lateral right eighth rib. UPPER ABDOMEN: Indeterminate 28 mm left adrenal mass. 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 Tissue diagnosis recommended. Slightly irregular lateral right eighth rib could be nondisplaced fracture. Examination limited by lack of IV contrast.
--- NOTE | 2024-07-23 14:05 | RAD REPORT ---
EXAMINATION: CT LUMBAR SPINE WITHOUT CONTRAST CLINICAL INDICATION: Male, 83 years old. LOWER BACK PAIN TECHNIQUE: Axial CT images were obtained through the lumbar spine in soft tissue and bone windows wit hout intravenous contrast. Coronal and Sagittal reformatted images were created from the data set. One or more of the following dose reduction techniques were used: Automated exposure control, adjustm ent of the mA and/ or kV according to patient size, and/or iterative reconstruction. Unless otherwise specified, incidental findings do not require dedicated imaging follow-up. COMPARISON: 2014 CT reviewed FINDINGS: For purposes of this dictation, it is assumed that there are 5 non rib-bearing lumbar type vertebrae, and the most caudal fully segmented lumbar vertebra is labeled L5. ALIGNMENT: The lumbar spine demonstrates normal alignment without scoliosis or spondylolisthesis. BONES: Moderate osteopenia. T12, L4 and L5 vertebroplasty cement. No acute fracture seen. DISCS: Disc thinning and degenerative disc disease is seen particularly lower lumbar levels. LEVELS: Moderate lower lumbar spondylosis is present. SOFT TISSUE: Up to 3 cm left adrenal mass, demonstrating long-term stability. IMPRESSION: No acute lumbar spine abnormalities. Multilevel vertebroplasty cement noted. 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
--- NOTE | 2024-07-23 14:07 | RAD REPORT ---
EXAMINATION: XR RIGHT KNEE CLINICAL INDICATION: Male, 83 years old. PAIN TECHNIQUE: Multiple views of the right knee were obtained. COMPARISON: 02/15/2023, 07/15/2022 FINDINGS: Right total knee arthroplasty is present. Diffuse osteopenia. Small joint effusion. No acu te fractures demonstrated.
--- NOTE | 2024-07-23 16:12 | ER ---
Nurse's Notes [facility] Name: Mauricio Vargas Age: 83 yrs Sex: Male : 1940 Arrival Date: 07/23/2024 Time: 11:53 Bed 24 Private MD: Diagnosis: Fracture of one rib;Fracture of one rib, right side Presentation: 07/23 12:09 Chief complaint: EMS states: toned out for pain. patient had L4/L5 kyphoplasty about 2 me1 weeks ago and has had back pain since, low back pain is 6/10 at this time. Patient is ambulatory with a walker but was given muscle relaxers and fell on Monday causing right anterior rib pain intermittently, worse with movement/cough, and pain to lateral right knee 10/10 at rest. Coronavirus screen: Vaccine status: Patient reports receiving the 2nd dose of the covid vaccine. Ebola Screen: No symptoms or risks identified at this time. Initial Sepsis Screen: Does the patient meet any 2 criteria? No. Patient's initial sepsis screen is negative. Does the patient have a suspected source of infection? No. Patient's initial sepsis screen is negative. Risk Assessment: Do you want to hurt yourself or someone else? Patient reports no desire to harm self or others. Onset of symptoms is unknown. 12:09 Method Of Arrival: EMS: [facility] in1 12:09 Acuity: VELVET 3 me1 Triage Assessment: 12:12 General: Appears uncomfortable, well groomed, well developed, well nourished, Behavior me1 is calm, cooperative, appropriate for age, Reports toned out for pain. patient had L4/L5 kyphoplasty about 2 weeks ago and has had back pain since, low back pain is 6/10 at this time. Patient is ambulatory with a walker but was given muscle relaxers and fell on Monday causing right anterior rib pain intermittently, worse with movement/cough, and pain to lateral right knee 10/10 at rest. Pain: Complains of pain in lumbar area, right ribs, right knee Pain does not radiate. Pain currently is 10 out of 10 on a pain scale. Quality of pain is described as aching, Pain began 2-3 days ago. Is continuous. EENT: No signs and/or symptoms were reported regarding the EENT system. Neuro: Level of Consciousness is awake, alert, obeys commands, Oriented to person, place, time, situation, Appropriate for age. Cardiovascular: Patient's skin is warm and dry. Respiratory: Airway is patent Respiratory effort is even, unlabored, Respiratory pattern is regular, symmetrical. GI: No signs and/or symptoms were reported involving the gastrointestinal system. : No signs and/or symptoms were reported regarding the genitourinary system. Derm: Skin is intact, is healthy with good turgor, Skin is pink, warm \T\ dry. Musculoskeletal: Reports pain in lumbar area, right ribs, right knee. Injury Description: patient had L4/L5 kyphoplasty about 2 weeks ago and has had back pain since, low back pain is 6/10 at this time. Patient is ambulatory with a walker but was given muscle relaxers and fell on Monday causing right anterior rib pain intermittently, worse with movement/cough, and pain to lateral right knee 10/10 at rest. Historical: - Allergies: 12:12 PENICILLINS; me1 12:12 Sulfa (Sulfonamide Antibiotics); me1 - PMHx: 12:12 Hyperlipidemia; Hypertension; me1 - PSHx: 12:12 back surgery (Hypertension); Operative procedure on knee; me1 - Immunization history:: Adult Immunizations up to date. - Infectious Disease History:: Denies. - Social history:: Smoking status: Patient denies any tobacco usage or history of. Screenin:16 [facility] ED Fall Risk Assessment (Adult) History of falling in the last 3 months, me1 including since admission Yes- single mechanical fall (1 pt) Confusion or Disorientation No (0 pts) Intoxicated or Sedated No (0 pts) Impaired Gait Yes (1 pt) Mobility Assist Device Used Yes (1 pt) Altered Elimination No (0 pt) Score/Fall Risk Level 0 - 2 = Low Risk Maintained a safe environment, Provided non-skid footwear, Hourly rounding (assess needs \T\ fall precautionary measures) done. Abuse screen: Denies threats or abuse. Nutritional screening: No deficits noted. Tuberculosis screening: No symptoms or risk factors identified. Assessment: 12:16 General: See triage assessment. me1 Vital Signs: 12:09 BP 126 / 67; Pulse 71; Resp 18; Temp 98.4; Pulse Ox 96% ; Weight 99.79 kg; Height 6 ft. me1 2 in. ; Pain 10/10; 13:00 BP 138 / 67; Pulse 72; Resp 18; Pulse Ox 96% ; me1 14:00 BP 129 / 66; Pulse 79; Resp 16; Pulse Ox 96% ; me1 15:00 BP 135 / 63; Pulse 71; Resp 16; Pulse Ox 94% ; me1 16:00 BP 149 / 80; Pulse 86; Resp 16; Temp 98.2; Pulse Ox 96% ; me1 12:09 Body Mass Index 28.25 (99.79 kg, 187.96 cm) me1 12:09 Pain Scale: Adult me1 ED Course: 11:59 Patient arrived in ED. bc6 12:00 Neli Bajwa, SAMUEL is Primary Nurse. me1 12:01 Camilo Steel MD is Attending Physician. jj9 12:12 Triage completed. me1 12:12 Arm band placed on Patient placed in an exam room. me1 12:16 Patient has correct armband on for positive identification. Bed in low position. Call me1 light in reach. Side rails up X2. Provided Education on: POC. Verbalized understanding.. Client placed on continuous cardiac and pulse oximetry monitoring. NIBP monitoring applied. Pulse ox on. NIBP on. 12:16 No provider procedures requiring assistance completed. me1 13:20 Inserted saline lock: 22 gauge in right antecubital area, using aseptic technique. me1 13:40 CT Chest Wo Con In Process Unspecified. EDMS 13:40 CT Lumbar Spine Wo Con In Process Unspecified. EDMS 13:56 Knee Right 2 View XRAY In Process Unspecified. EDMS 16:35 IV discontinued, intact, bleeding controlled, No redness/swelling at site. Pressure me1 dressing applied. Administered Medications: 13:21 Drug: morphine IVP or IV 5 mg IVP once over 4 mins Route: IVP; Infused Over: 4 mins; me1 Site: right antecubital; 13:54 Follow up: Response: No adverse reaction; Pain is decreased me1 16:24 Drug: morphine IVP or IV 2 mg IVP once over 4 mins Route: IVP; Infused Over: 4 mins; me1 Site: right antecubital; 16:25 Follow up: Response: No adverse reaction; Pain is decreased me1 Medication: 12:16 VIS not applicable for this client. me1 Outcome: 16:11 Discharge ordered by jj9 16:35 Discharged to home via wheelchair, with family, me1 16:35 Condition: stable 16:35 Discharge instructions given to patient, Instructed on discharge instructions, follow up and referral plans. Demonstrated understanding of instructions, follow-up care, 16:35 Patient left the ED. me1 Signatures: Dispatcher [employer] EDPoonam Hicks 6 Neli Bajwa RN RN me1 Camilo Steel MD MD jj9
--- NOTE | 2024-07-23 16:12 | EDPHYS ---
Physician Documentation [facility] Name: Mauricio Vargas Age: 83 yrs Sex: Male : 1940 Arrival Date: 07/23/2024 Time: 11:53 Bed 24 Private MD: ED Physician Camilo Steel HPI: 07/23 16:46 This 83 yrs old Male presents to ER via EMS with complaints of Fall Injury, Knee Pain, jj9 Back Pain. 15:35 83-year-old man comes emergency department complaining of pain to his chest and lower jj9 back as well as right knee after a fall. The patient had kyphoplasty done several weeks ago to his lumbar area. He denies any other problems he is complaining of chronic pain to the back.. Historical: - Allergies: 12:12 PENICILLINS; me1 12:12 Sulfa (Sulfonamide Antibiotics); me1 - PMHx: 12:12 Hyperlipidemia; Hypertension; me1 - PSHx: 12:12 back surgery (Hypertension); Operative procedure on knee; me1 - Immunization history:: Adult Immunizations up to date. - Infectious Disease History:: Denies. - Social history:: Smoking status: Patient denies any tobacco usage or history of. ROS: 15:35 Constitutional: Negative for fever, chills, and weight loss, Eyes: Negative for injury, jj9 pain, redness, and discharge, ENT: Negative for injury, pain, and discharge, Neck: Negative for injury, pain, and swelling, Cardiovascular: Negative for chest pain, palpitations, and edema, Respiratory: Negative for shortness of breath, cough, wheezing, and pleuritic chest pain, Abdomen/GI: Negative for abdominal pain, nausea, vomiting, diarrhea, and constipation, Back: Lower back pain MS/Extremity: Right knee pain Skin: Negative for injury, rash, and discoloration, Neuro: Negative for headache, weakness, numbness, tingling, and seizure, Psych: Negative for depression, anxiety, suicide ideation, homicidal ideation, and hallucinations, Allergy/Immunology: Negative for hives, rash, and allergies, Endocrine: Negative for neck swelling, polydipsia, polyuria, polyphagia, and marked weight changes, Exam: 15:36 Constitutional: This is a well developed, well nourished patient who is awake, alert, jj9 and in no acute distress. Head/Face: Normocephalic, atraumatic. Eyes: Pupils equal round and reactive to light, extra-ocular motions intact. Lids and lashes normal. Conjunctiva and sclera are non-icteric and not injected. Cornea within normal limits. Periorbital areas with no swelling, redness, or edema. ENT: Nares patent. No nasal discharge, no septal abnormalities noted. Tympanic membranes are normal and external auditory canals are clear. Oropharynx with no redness, swelling, or masses, exudates, or evidence of obstruction, uvula midline. Mucous membranes moist. Neck: Trachea midline, no thyromegaly or masses palpated, and no cervical lymphadenopathy. Supple, full range of motion without nuchal rigidity, or vertebral point tenderness. No Meningismus. Chest/axilla: Normal chest wall appearance and motion. Nontender with no deformity. No lesions are appreciated. Cardiovascular: Regular rate and rhythm with a normal S1 and S2. No gallops, murmurs, or rubs. Normal PMI, no JVD. No pulse deficits. Respiratory: Lungs have equal breath sounds bilaterally, clear to auscultation and percussion. No rales, rhonchi or wheezes noted. No increased work of breathing, no retractions or nasal flaring. Abdomen/GI: Soft, non-tender, with normal bowel sounds. No distension or tympany. No guarding or rebound. No evidence of tenderness throughout. Back: No spinal tenderness. No costovertebral tenderness. Full range of motion. Skin: Warm, dry with normal turgor. Normal color with no rashes, no lesions, and no evidence of cellulitis. MS/ Extremity: Pulses equal, no cyanosis. Neurovascular intact. Full, normal range of motion. Neuro: Awake and alert, GCS 15, oriented to person, place, time, and situation. Cranial nerves II-XII grossly intact. Motor strength 5/5 in all extremities. Sensory grossly intact. Cerebellar exam normal. Normal gait. Psych: Awake, alert, with orientation to person, place and time. Behavior, mood, and affect are within normal limits. Vital Signs: 12:09 BP 126 / 67; Pulse 71; Resp 18; Temp 98.4; Pulse Ox 96% ; Weight 99.79 kg; Height 6 ft. me1 2 in. ; Pain 10/10; 13:00 BP 138 / 67; Pulse 72; Resp 18; Pulse Ox 96% ; me1 14:00 BP 129 / 66; Pulse 79; Resp 16; Pulse Ox 96% ; me1 15:00 BP 135 / 63; Pulse 71; Resp 16; Pulse Ox 94% ; me1 16:00 BP 149 / 80; Pulse 86; Resp 16; Temp 98.2; Pulse Ox 96% ; me1 12:09 Body Mass Index 28.25 (99.79 kg, 187.96 cm) me1 12:09 Pain Scale: Adult me1 MDM: 12:02 Medical Screening Exam initiated j 16:07 Differential diagnosis: abrasion, contusion, fracture, strain. 16:07 Management of patient was discussed with the following: Primary Care Provider: David. Management of patient was discussed with the following: Management of patient was discussed with the following: Management of patient was discussed with the following: Primary Care Provider: discussed regarding JERO mass. ED course: 83-year-old man comes emergency department for evaluation of pain to his chest after a fall sustained several days ago. The patient is status post kyphoplasty to the right lumbar area and complains also of knee pain. Workup today shows no acute fracture of the right knee there is possibly a nondisplaced right eighth rib fracture and recent surgical changes to lumbar area. There is also an incidental left upper lobe mass. Morphine was given for pain control patient will continue [place] at home. I discussed the case and the findings with Dr. Hernandez his PCP especially in regards to the left upper lobe mass. The patient will follow-up in clinic for further outpatient workup. The patient understand agrees with the plan.. 16:46 Data reviewed: vital signs, nurses notes. 07/23 13:10 Order name: CT Chest Wo Con; Complete Time: 15:37 07/23 13:10 Order name: CT Lumbar Spine Wo Con; Complete Time: 15:37 07/23 13:10 Order name: Knee Right 2 View XRAY; Complete Time: 15:37 Administered Medications: 13:21 Drug: morphine IVP or IV 5 mg IVP once over 4 mins Route: IVP; Infused Over: 4 mins[place] [facility] [place] antecubital; 13:54 Follow up: Response: No adverse reaction; Pain is decreased me1 16:24 Drug: morphine IVP or IV 2 mg IVP once over 4 mins Route: IVP; Infused Over: 4 mins; me1 Site: right antecubital; 16:25 Follow up: Response: No adverse reaction; Pain is decreased me1 Disposition Summary: 07/23/24 16:11 Discharge Ordered Notes: Location: Home j9 Problem: chronic jj9 Symptoms: have improved jj9 Condition: Stable jj9 Diagnosis - Fracture of one rib jj9 - Fracture of one rib, right side jj9 Followup: jj9 - With: Private Physician - When: 24 Hours - Reason: Re-evaluation by your physician Discharge Instructions: - Discharge Summary Sheet jj9 - Rib Fracture jj9 Forms: - Medication Reconciliation Form jj9 - Antibiotic Education jj9 - Prescription Opioid Use jj9 - Patient Portal Instructions jj9 - Leadership Thank You Letter jj9 Signatures: Dispatcher [employer] Neli Estevez RN RN ak1 Camilo Steel MD MD jj9 Corrections: (The following items were deleted from the chart) 13:10 13:10 Thorax Wo Con+CT.RAD.BRZ ordered. EDMS EDMS
[2024-07-23 20:08] VITALS: BP 149/80; TEMP 98.2; O2SAT 96
== END 2024-07-23 16:35 | disposition home or self-care (01) ==
LOC: ER 11:53
DX: S22.31XA Fracture of one rib, right side, initial encounter for closed fracture (principal); M25.561 Pain in right knee; W18.30XA Fall on same level, unspecified, initial encounter; Z98.890 Other specified postprocedural states
CPT/HCPCS: 72131; 71250; 73560; 96374; 99284; J2270 ×2